=== PATIENT | female | born 1985 | race Caucasian/White ===

== ENCOUNTER 2018-12-20 11:53 | Emergency (ER) | payer OTHER ==
[2018-12-20] MEDS ORDERED: NS 1,000 ML IV ONE ×2 (13:05→14:18)
[2018-12-20] MEDS ORDERED: ONDANSETRON 4 MG/2 ML VIAL IVP ONE (13:05)
[2018-12-20] MEDS ORDERED: LORazepam 2 MG/ML INJ IVP ONE (13:06)
--- NOTE | 2018-12-20 13:10 | EDPHY ---
H & P Stated Complaint: ABD Pain Time Seen by Provider: 12/20/18 12:53 HPI/ROS: CHIEF COMPLAINT: Abdominal pain, anxiety HISTORY OF PRESENT ILLNESS: 33-year-old female with endometriosis presents with abdominal pain and anxiety. Onset of a runny nose and cough yesterday. This morning she awoke with sharp and stabbing epigastric pain. The pain occurred every 10-15 minutes and was transient. Associated with loose stools and vomiting. She became anxious because her boyfriend is out of town and she had no one to talk to. On the way to her physician's office, she developed bilateral hand tingling and increased anxiety, which prompted her ED visit. She continues to feel quite anxious. MRI of the lumbar spine performed last week because of ongoing low back pain. Just completing a a course of prednisone for LBP, back pain is resolving. No fever or urinary symptoms. REVIEW OF SYSTEMS: complete 10 point ROS reviewed and is negative except for the noted elements in the HPI Source: Patient - Personal History LMP (Females 10-55): IUD In Place Current Tetanus Diphtheria and Acellular Pertussis (TDAP): Yes - Medical/Surgical History Hx Asthma: No Hx Chronic Respiratory Disease: No Hx Diabetes: No Hx Cardiac Disease: No Hx Renal Disease: No Hx Cirrhosis: No Hx Alcoholism: No Hx HIV/AIDS: No Hx Splenectomy or Spleen Trauma: No Other PMH: Anxiety, Lumbar Spine Disc, Endometriosis - Social History Smoking Status: Never smoked Alcohol Use: Sober Drug Use: None Additional Social History: Single - Physical Exam Exam: General Appearance: Alert, tearful and anxious Eyes: Pupils equal and round, conjunctival injection ENT, Mouth: Mucous membranes moist Neck: Normal inspection Respiratory: Lungs are clear to auscultation Cardiovascular: Regular rate and rhythm Gastrointestinal: Abdomen is soft, mild epigastric tenderness Neurological: A&O, nonfocal exam Skin: Warm and dry Extremities: Normal inspection Psychiatric: Anxious Constitutional: Initial Vital Signs Temperature (C) 37 C 12/20/18 12:09 Heart Rate 103 H 12/20/18 12:09 Respiratory Rate 18 12/20/18 12:09 Blood Pressure 108/68 12/20/18 12:09 O2 Sat (%) 97 12/20/18 12:09 O2 Delivery Mode Room Air Allergies/Adverse Reactions: No Known Allergies Allergy (Unverified 12/20/18 12:13) Home Medications: Medication Instructions Recorded Ondansetron Odt [Zofran Odt 4 mg 4 mg PO Q4 PRN #6 tab 12/20/18 (*)] Medical Decision Making ED Course/Re-evaluation: This patient presents with abdominal pain, vomiting and anxiety. Abdominal exam is benign. IV normal saline 1 L, Zofran and Ativan IV given. 1420: feels much better. Nausea and abdominal pain have resolved. Abdomen is soft and nontender. On discharge, patient continues to feel much better. Able to tolerate oral fluids well. No nausea or abdominal pain. Abdominal exam remains benign. Likely viral gastroenteritis. Warning signs discussed. Differential Diagnosis: Differential diagnosis includes though it is not limited to appendicitis, cholecystitis, diverticulitis, pyelonephritis, bowel perforation, small bowel obstruction. - Data Points Laboratory Results: Laboratory Results 12/20/18 12:07 12/20/18 12:07 12/20/18 12/20/18 12/20/18 15:10 12:07 12:07 WBC RBC Hgb Hct MCV MCH MCHC RDW Plt Count MPV Neut % (Auto) Lymph % (Auto) [place] % (Auto) Eos % (Auto) Baso % (Auto) Nucleat RBC Rel Count Absolute Neuts (auto) Absolute Lymphs (auto) Absolute Monos (auto) Absolute Eos (auto) Absolute Basos (auto) Absolute Nucleated RBC Immature Gran % Immature Gran # Sodium 135 mEq/L mEq/L (135-145) Potassium 3.3 mEq/L L mEq/L (3.5-5.2) Chloride 107 mEq/L mEq/L (97-110) Carbon Dioxide 21 mEq/l L mEq/l (22-31) Anion Gap 7 mEq/L mEq/L (6-14) BUN 12 mg/dL mg/dL (7-23) Creatinine 0.6 mg/dL mg/dL (0.6-1.0) Estimated GFR > 60 Glucose 84 mg/dL mg/dL (70-100) Calcium 9.2 mg/dL mg/dL (8.5-10.4) Total Bilirubin 0.6 mg/dL mg/dL (0.1-1.4) Conjugated Bilirubin 0.3 mg/dL mg/dL (0.0-0.5) Unconjugated Bilirubin 0.3 mg/dL mg/dL (0.0-1.1) AST 19 IU/L IU/L (14-46) ALT 26 IU/L IU/L (9-52) Alkaline Phosphatase 58 IU/L IU/L (38-126) Total Protein 6.7 g/dL g/dL (6.3-8.2) Albumin 4.3 g/dL g/dL (3.5-5.0) Lipase 85 IU/L IU/L (23-300) Beta HCG, Qual NEGATIVE Urine Color YELLOW Urine Appearance CLEAR Urine pH 9.0 H (5.0-7.5) Ur Specific [place] 1.012 (1.002-1.030) Urine Protein NEGATIVE (NEGATIVE) Urine Ketones NEGATIVE (NEGATIVE) Urine Blood NEGATIVE (NEGATIVE) Urine Nitrate NEGATIVE (NEGATIVE) Urine Bilirubin NEGATIVE (NEGATIVE) Urine Urobilinogen NEGATIVE EU EU (0.2-1.0) Ur Leukocyte Esterase NEGATIVE (NEGATIVE) Urine Glucose NEGATIVE (NEGATIVE) 12/20/18 12:07 WBC 9.85 10^3/uL H 10^3/uL (3.80-9.50) RBC 4.52 10^6/uL 10^6/uL (4.18-5.33) Hgb 13.6 g/dL g/dL (12.6-16.3) Hct 40.6 % % (38.0-47.0) MCV 89.8 fL fL (81.5-99.8) MCH 30.1 pg pg (27.9-34.1) MCHC 33.5 g/dL g/dL (32.4-36.7) RDW 12.8 % % (11.5-15.2) Plt Count 183 10^3/uL 10^3/uL (150-400) MPV 10.8 fL fL (8.7-11.7) Neut % (Auto) 82.8 % H % (39.3-74.2) Lymph % (Auto) 9.9 % L % (15.0-45.0) [place] % (Auto) 6.5 % % (4.5-13.0) Eos % (Auto) 0.3 % L % (0.6-7.6) Baso % (Auto) 0.1 % L % (0.3-1.7) Nucleat RBC Rel Count 0.0 % % (0.0-0.2) Absolute Neuts (auto) 8.15 10^3/uL H 10^3/uL (1.70-6.50) Absolute Lymphs (auto) 0.98 10^3/uL L 10^3/uL (1.00-3.00) Absolute Monos (auto) 0.64 10^3/uL 10^3/uL (0.30-0.80) Absolute Eos (auto) 0.03 10^3/uL 10^3/uL (0.03-0.40) Absolute Basos (auto) 0.01 10^3/uL L 10^3/uL (0.02-0.10) Absolute Nucleated RBC 0.00 10^3/uL 10^3/uL (0-0.01) Immature Gran % 0.4 % % (0.0-1.1) Immature Gran # 0.04 10^3/uL 10^3/uL (0.00-0.10) Sodium Potassium Chloride Carbon Dioxide Anion Gap BUN Creatinine Estimated GFR Glucose Calcium Total Bilirubin Conjugated Bilirubin Unconjugated Bilirubin AST ALT Alkaline Phosphatase Total Protein Albumin Lipase Beta HCG, Qual Urine Color Urine Appearance Urine pH Ur Specific [place] Urine Protein Urine Ketones Urine Blood Urine Nitrate Urine Bilirubin Urine Urobilinogen Ur Leukocyte Esterase Urine Glucose Medications Given: Discontinued Medications Acetaminophen (Tylenol) 650 mg PO EDNOW ONE Stop: 12/20/18 13:12 Last Admin: 12/20/18 13:19 Dose: 650 mg Sodium Chloride (Ns) 1,000 mls @ 0 mls/hr IV EDNOW ONE; Wide Open PRN Reason: Protocol Stop: 12/20/18 13:06 Last Admin: 12/20/18 13:16 Dose: 1,000 mls Sodium Chloride (Ns) 1,000 mls @ 0 mls/hr IV ONCE ONE; Wide Open PRN Reason: Protocol Stop: 12/20/18 14:19 Last Admin: 12/20/18 15:07 Dose: 1,000 mls Lorazepam (Ativan Injection) 0.5 mg IVP EDNOW ONE Stop: 12/20/18 13:07 Last Admin: 12/20/18 13:15 Dose: 0.5 mg Ondansetron HCl (Zofran) 4 mg IVP EDNOW ONE Stop: 12/20/18 13:06 Last Admin: 12/20/18 13:16 Dose: 4 mg Departure - Departure Disposition: Home, Routine, Self-Care Clinical Impression: Acute gastroenteritis Abdominal pain Qualifiers: Abdominal location: epigastric Qualified Code(s): R10.13 - Epigastric pain Condition: Good Instructions: Acute Abdominal Pain (ED) Additional Instructions: 1. Clear liquids for 24 hours. 2. Advance diet as tolerated. I suggest the BRAT diet to start: bananas, rice, applesauce and toast. 3. Return for worsening symptoms, persistent vomiting, abdominal pain, any concerns. Referrals: BERTO,UNKNOWN [Other] - 1 day, if not improved Stand Alone Forms: Work Excuse Prescriptions: Ondansetron Odt [Zofran Odt 4 mg (*)] 4 mg PO Q4 PRN #6 tab PRN Reason: Nausea
[2018-12-20] MEDS ORDERED: ACETAMINOPHEN 325 MG TAB PO ONE (13:11)
[2018-12-20 13:57] LABS: PLATELET COUNT 183 10^3/uL (150-400)
[2018-12-20 15:30] VITALS: BP 112/76
== END 2018-12-20 15:33 | disposition home or self-care (01) ==
DX: K52.9 Noninfective gastroenteritis and colitis, unspecified (principal); R10.13 Epigastric pain
CPT/HCPCS: 96374; J2060; J2405